=== PATIENT | male | born 1970 | race Caucasian/White ===

== ENCOUNTER 2017-07-24 19:50 | Inpatient (IN) | payer MEDICAID, OTHER ==
[~2017-07-24] VITALS: Ht 177.8 cm; Wt 140.1 kg
[2017-07-24] MEDS ORDERED: SODIUM CHLORIDE 0.9% 1,000 ML IV ONE (19:58)
[2017-07-24] MEDS ORDERED: MORPHINE SULFATE 4 MG/ML, 1ML IVPush PRN (20:00)
[2017-07-24] MEDS ORDERED: SODIUM CHLORIDE 0.9% 1,000ML IVBOLUS ONE (20:00)
[2017-07-24] MEDS ORDERED: FAMOTIDINE 20 MG/2 ML IVP ONE (20:00)
[2017-07-24] MEDS ORDERED: ONDANSETRON 2MG/ML, 2ML IVPush ONE (20:00)
[2017-07-24] MEDS ORDERED: MORPHINE SULFATE 4 MG/ML, 1ML ONE (20:10)
[2017-07-24] MEDS ORDERED: ONDANSETRON 2MG/ML, 2ML ONE (20:10)
[2017-07-24] MEDS ORDERED: FAMOTIDINE 20 MG/2 ML ONE (20:11)
[2017-07-24 20:31] LABS: PATH.CAST-FLAG NOT PRESENT; SPERM-FLAG NOT PRESENT; SRC-FLAG NOT PRESENT; XTAL-FLAG NOT PRESENT; YLC-FLAG NOT PRESENT
[2017-07-24 20:55] LABS: HEMATOCRIT 44.7 % (39.2-51.8); HEMOGLOBIN 14.9 g/dL (13.7-18.0); WHITE BLOOD COUNT 19.6 x10^3/uL (3.4-10)
[2017-07-24 21:06] LABS: BLOOD UREA NITROGEN 11 mg/dL (7-18)
[2017-07-24 21:10] LABS: ASPARTATE AMINO TRANSFERASE 35 U/L (15-37)
[2017-07-24 21:19] LABS: DIFF TOTAL CELLS COUNTED 100 CELL DIFF
[2017-07-24 21:21] LABS: VERIFY COUNTS? YES
[2017-07-24] MEDS ORDERED: CEFTRIAXONE PMX 1GM/50ML 50 ML IVPB ONE (21:30)
[2017-07-24] MEDS ORDERED: CEFTRIAXONE PMX 1GM/50ML 50 ML ONE (21:38)
[2017-07-24] MEDS ORDERED: SODIUM CHLORIDE FLUSH 10ML SYR IVF PRN (22:00)
[2017-07-24] MEDS ORDERED: ONDANSETRON 2MG/ML, 2ML IVPush PRN ×2 (22:00→23:30)
[2017-07-24] MEDS ORDERED: HYDROmorphone 1 MG/ML, 1ML IVPush PRN (22:00)
[2017-07-24] MEDS ORDERED: SUMA100T3 PO (22:05)
[2017-07-24] MEDS ORDERED: HYDROcodone/APAP 5/325 TABLET PO PRN (23:30)
[2017-07-24] MEDS ORDERED: morphine SULFATE 10 MG/ML, 1ML IVPush PRN (23:30)
[2017-07-24] MEDS: HEPARIN 5,000 UNITS/ML, 1ML SQ SCH (23:30)
[2017-07-24] MEDS ORDERED: CEFTRIAXONE PMX 1GM/50ML 50 ML IV SCH (23:30)
[2017-07-25] VITALS: BP 117/73
[2017-07-25] MEDS: SODIUM CHLORIDE 0.9% 1,000 ML IV SCH ×3 (00:11→13:04)
[2017-07-25 04:58] LABS: HEMATOCRIT 42.5 % (39.2-51.8); HEMOGLOBIN 14.2 g/dL (13.7-18.0); WHITE BLOOD COUNT 17.8 x10^3/uL (3.4-10)
[2017-07-25 05:10] LABS: BLOOD UREA NITROGEN 9 mg/dL (7-18)
[2017-07-25 07:18] VITALS: BP 167/92
[2017-07-25] MEDS: HEPARIN 5,000 UNITS/ML, 1ML SQ SCH ×2 (07:30→15:30)
[2017-07-25] MEDS ORDERED: SUMATRIPTAN 50 MG TABLET PO PRN (08:30)
[2017-07-25 14:00] VITALS: BP 121/68
[2017-07-25] MEDS ORDERED: CIPR500T87 PO (16:17)
== END 2017-07-25 17:10 | disposition home or self-care (01) | DRG 690 ==
LOC: ED 23:24 → 4WST 23:59
PROVIDERS: ADMIT Family Medicine; ATTEND Family Medicine
DX: N13.6 Pyonephrosis (principal); N28.1 Cyst of kidney, acquired; N20.2 Calculus of kidney with calculus of ureter; I25.2 Old myocardial infarction; Z87.442 Personal history of urinary calculi; Z83.3 Family history of diabetes mellitus; Z80.8 Family history of malignant neoplasm of other organs or systems; Z82.49 Family history of ischemic heart disease and other diseases of the circulatory system
CPT/HCPCS: 36415; 74176; 80048; 80053; 81001; 83036; 83690; 85025; 87077; 87086; 87186; 93005; 96361; 96374; 96375; J0696; J1170; J2405; J2270; J7030; S0028

== ENCOUNTER → 2017-10-18 | Outpatient (CLI) | payer OTHER ==
[~2017-10-18] MED LIST: CIPR500T87 PO; SUMA100T3 PO
== END | disposition home or self-care (01) ==
LOC: RAD 16:35
PROVIDERS: ATTEND Urology
DX: N20.1 Calculus of ureter (principal)
CPT/HCPCS: 74000

== ENCOUNTER 2021-06-24 07:46 | Inpatient (IN) | payer OTHER ==
[~2021-06-24] VITALS: Ht 177.8 cm; Wt 159.6 kg
--- NOTE | 2021-06-24 07:59 | NUR ---
LAB INSTRUCTOR: PT TO ROOM FROM [facility].
--- NOTE | 2021-06-24 08:32 | NUR ---
CONTACT WITH PT, 51 YR OLD MALE HERE WITH MULTIPLE COMPLAINTS, "I DONT KNOW IF ITS KIDNEY STONES OR WHAT. I HAVE FEVER (BEGAN TODAY), ALL OVER PAIN, WHEN I COUGH IT FEELS A PINCH OF MY CHEST ON THE LEFT SIDE, BODY ACHES(SEVERAL WEEKS)" TOOK 3 EXCEDRIN TABLETS AT 0430. PT PLACED ON MONITORS. TATUM PATRICIA AT BEDSIDE TO JENNY GOODMAN.
[2021-06-24] MEDS ORDERED: IBUPROFEN 600 MG TABLET ONE (08:51)
[2021-06-24] MEDS ORDERED: ONDANSETRON 2MG/ML, 2ML ONE (08:51)
[2021-06-24] MEDS ORDERED: SODIUM CHLORIDE 0.9% 1,000ML IVBOLUS ONE (09:00)
[2021-06-24] MEDS ORDERED: ONDANSETRON 2MG/ML, 2ML IVPush ONE (09:00)
[2021-06-24] MEDS ORDERED: IBUPROFEN 600 MG TABLET PO ONE (09:00)
--- NOTE | 2021-06-24 09:07 | NUR ---
REPORT FROM MATHEW POSADAS. LAB CURRENTLY AT BEDSIDE. IMAGING ENTERING ROOM FOR CXR. US IV ON STANDBY FOR ACCESS.
--- NOTE | 2021-06-24 09:11 | NUR ---
LAB IN TO DRAW LABS, PORTABLE CXR COMPLETED. URINE COLLECTED. REPORT TO TIFFANIE CARMONA
[2021-06-24 09:24] LABS: MEAN CORPUSCULAR HEMOGLOBIN 25.7 pg (27.5-34.5); MEAN CORPUSCULAR HGB CONC 33.1 g/dL (33.2-36.2); PLATELET COUNT 328 x10^3/uL (130-400); RED BLOOD COUNT 5.57 x10^6/uL (4.38-5.82); RED CELL DISTRIBUTION WIDTH 15.8 % (9.4-14.8)
[2021-06-24 09:27] LABS: MICROSCOPIC INDICATED
[2021-06-24 09:42] LABS: ALBUMIN 3.6 g/dL (3.4-5.0)
--- NOTE | 2021-06-24 09:47 | NUR ---
IV STARTED, SECOND SET OF BLOOD CULTURES COLLECTED, LABELLED AND SENT. PT HOB TO POSITION OF COMFORT, PILLOWS PLACED FOR PT COMFORT. LIGHTS DIMMED, CALL LIGHT IN REACH, SIDE RAILS UP, CURTAIN PULLED AND DOOR CLOSED.
[2021-06-24 09:48] LABS: ALANINE AMINOTRANSFERASE 53 U/L (12-78); ALKALINE PHOSPHATASE 92 U/L (45-117); BILIRUBIN,TOTAL 0.8 mg/dL (0.2-1.0); CREATININE 0.88 mg/dL (0.7-1.3); TOTAL PROTEIN 8.3 g/dL (6.4-8.2); TROPONIN I < 0.015 ng/mL (0.000-0.045)
[2021-06-24 09:59] LABS: <PLATELET ESTIMATE> ADEQUATE; <PLT MORPHOLOGY> NORMAL PLT MORPH; ANISOCYTOSIS 1+; LYMPH#(MANUAL) 1.77 x10^3/uL (1-3.4); LYMPHS% (MANUAL) 7 % (22-44); MICROCYTOSIS 1+; MONOS#(MANUAL) 1.52 x10^3/uL (0.3-2.7); MONOS% (MANUAL) 6 % (2-9); SEG#(MANUAL) 22.01 x10^3/uL (1.8-6.8); SEGS% (MANUAL) 87 % (42-75)
[2021-06-24 10:13] LABS: ANION GAP 8 mmol/L (5-15); CHLORIDE 104 mmol/L (98-107)
--- NOTE | 2021-06-24 10:57 | NUR ---
YELLOW SLIP SENT TO PHARMACY REQUEST FOR IMITREX.
[2021-06-24] MEDS ORDERED: SUMATRIPTAN 100 MG TABLET PO PRN (11:00)
--- NOTE | 2021-06-24 11:05 | NUR ---
PT TAKEN TO CT.
--- NOTE | 2021-06-24 11:47 | NUR ---
CALL TO PHARMACY FOR IMITREX.
--- NOTE | 2021-06-24 12:00 | NUR ---
PT CLEARED BY DR WASSERMAN TO EAT. PT AND , WHO REMAINS AT BEDSIDE IS AWARE.
--- NOTE | 2021-06-24 12:56 | NUR ---
RN AND PA IN TO ROOM FOR URETHRA VISUALIZATION. UNABLE TO APPRECIATE TIP OF PENIS DESPITE PRESSURE ON PANNUS. ERYTHEMA EVIDENT AROUND LOW PELVIC REGION. AWAITING FURTHER ORDERS.
[2021-06-24] MEDS ORDERED: CEFTRIAXONE 1,000 MG in DEXTROSE 5% 50 ML IVPB ONE (13:00)
[2021-06-24] MEDS ORDERED: BISACODYL 10 MG SUPP PR PRN (13:30)
[2021-06-24] MEDS ORDERED: morphine SULFATE 10 MG/ML, 1ML IVPush PRN (13:30)
[2021-06-24] MEDS ORDERED: ACETAMINOPHEN 325 MG TABLET PO PRN (13:30)
[2021-06-24] MEDS ORDERED: VANCOMYCIN 2,500 MG in SODIUM CHLORIDE 0.9% 500 ML IV ONE (13:30)
[2021-06-24] MEDS ORDERED: PROMETHAZINE 25 MG/ML, 1ML IM PRN (13:30)
[2021-06-24] MEDS ORDERED: hydrALAzine 20 MG/ML, 1ML IVPush PRN (13:30)
[2021-06-24] MEDS ORDERED: OXYcodone IR 5MG TABLET PO PRN (13:30)
[2021-06-24] MEDS ORDERED: ONDANSETRON 2MG/ML, 2ML IVPush PRN (13:30)
[2021-06-24] MEDS ORDERED: VANCOMYCIN PER PHARMACY MC ONE (13:30)
[2021-06-24] MEDS ORDERED: POLYETHYLENE GLYCOL 17 GM PACKET PO PRN (13:30)
[2021-06-24] MEDS ORDERED: DOCUSATE 100 MG CAPSULE PO PRN (13:30)
[2021-06-24] MEDS ORDERED: ONDANSETRON ODT 4 MG PO PRN (13:30)
--- NOTE | 2021-06-24 13:30 | NUR ---
REPORT TO MATHEW CASANOVA. REMAINS AT BEDSIDE.
--- NOTE | 2021-06-24 13:32 | NUR ---
REPORT RECEIVED FROM MATHEW MORENO, CARE ASSUMED AT THIS TIME.
--- NOTE | 2021-06-24 13:45 | NUR ---
PHARMACY CALLED TO SEND MALU 2G, MED NOT IN ED PHARMACY
[2021-06-24] MEDS ORDERED: VANCOMYCIN PER PHARMACY MC PRN (14:00)
[2021-06-24] MEDS: CEFTRIAXONE 2 GM in DEXTROSE 5% 50 ML IVPB SCH ×2 (14:00→14:02)
--- NOTE | 2021-06-24 14:04 | NUR ---
TASK RN: MEDICATED PER EMAR WITH ABX AFTER CLARIFICATION THAT BLOOD CULTURES ALREADY DRAWN WITH ASSESSMENT PATIENT COMPLAINING OF [place] REFRACTORY TO IMITRX- TO NOTIFY PROVIDER
[2021-06-24] MEDS: ENOXAPARIN 40 MG/0.4 ML SQ SCH (14:30)
--- NOTE | 2021-06-24 14:37 | NUR ---
REPORT GIVEN TO MATHEW MUHAMMAD PT AWAITING TRANSPORT TO MEDICAL FLOOR.
--- NOTE | 2021-06-24 14:39 | NUR ---
PER MATHEW MORENO, STRAIGHT CATH UA WAS DEFERRED PER LEYDA GARCIA D/T PATIENT ANATOMY.
[2021-06-24] MEDS ORDERED: PHARMACOKINETIC CONSULTATION MC ONE (16:30)
[2021-06-24] MEDS ORDERED: PHARMACOKINETIC MONITORING MC PRN (16:30)
[2021-06-24 17:03] VITALS: BP 125/72
[2021-06-24] MEDS: SODIUM CHLORIDE 0.9% 1,000 ML IV SCH (17:13)
[2021-06-24 20:02] VITALS: BP 149/74
[2021-06-24] MEDS: INSULIN LISPRO 100 UNITS/ML, PEN SQ-INSULIN SCH (20:46)
[2021-06-24] MEDS: IBUPROFEN 200 MG TABLET PO PRN (20:46)
[2021-06-24 23:40] LABS: MICROSCOPIC INDICATED
[2021-06-25 01:07] VITALS: BP 114/79
[2021-06-25] MEDS: IBUPROFEN 200 MG TABLET PO PRN ×2 (03:28→21:40)
[2021-06-25] MEDS: VANCOMYCIN 2,000 MG in SODIUM CHLORIDE 0.9% 500 ML IV SCH ×2 (03:29→14:57)
[2021-06-25] MEDS: SODIUM CHLORIDE 0.9% 1,000 ML IV SCH (03:29)
[2021-06-25] MEDS: SUMATRIPTAN 100 MG TABLET PO PRN ×2 (03:34→21:35)
[2021-06-25 05:48] LABS: MEAN CORPUSCULAR HEMOGLOBIN 25.6 pg (27.5-34.5); MEAN CORPUSCULAR HGB CONC 32.4 g/dL (33.2-36.2); PLATELET COUNT 237 x10^3/uL (130-400); RED BLOOD COUNT 5.01 x10^6/uL (4.38-5.82); RED CELL DISTRIBUTION WIDTH 15.8 % (9.4-14.8)
[2021-06-25 05:58] LABS: CHLORIDE 106 mmol/L (98-107)
[2021-06-25 06:17] LABS: ALANINE AMINOTRANSFERASE 39 U/L (12-78); ALBUMIN 2.8 g/dL (3.4-5.0); ALKALINE PHOSPHATASE 77 U/L (45-117); ANION GAP 5 mmol/L (5-15); BILIRUBIN,TOTAL 0.7 mg/dL (0.2-1.0); CALCIUM 8.4 mg/dL (8.5-10.1); CHOL/HDL RATIO 4.1; CHOLESTEROL, TOTAL 147 mg/dL (140-239); CREATININE 0.79 mg/dL (0.7-1.3); HDL CHOL % 24 % (26-37); HDL CHOLESTEROL (DIRECT) 36 mg/dL (40-60); LDL CHOLESTEROL,CALCULATED 95 mg/dL (54-169); LDL/HDL RATIO 2.6 (0.5-3.0); TOTAL PROTEIN 7.6 g/dL (6.4-8.2); TRIGLYCERIDES 80 mg/dL (50-200); VLDL CHOLESTEROL 16 mg/dL (0-25)
[2021-06-25 07:33] LABS: <PLATELET ESTIMATE> ADEQUATE; <PLT MORPHOLOGY> NORMAL PLT MORPH; ANISOCYTOSIS 1+; LYMPH#(MANUAL) 3.36 x10^3/uL (1-3.4); LYMPHS% (MANUAL) 16 % (22-44); MICROCYTOSIS 1+; MONOS#(MANUAL) 1.68 x10^3/uL (0.3-2.7); MONOS% (MANUAL) 8 % (2-9); SEG#(MANUAL) 15.96 x10^3/uL (1.8-6.8); SEGS% (MANUAL) 76 % (42-75)
[2021-06-25 08:02] VITALS: BP 100/66
[2021-06-25] MEDS: INSULIN LISPRO 100 UNITS/ML, PEN SQ-INSULIN SCH ×4 (08:47→21:36)
[2021-06-25] MEDS ORDERED: ALBUTEROL-IPRATROPIUM MDI INH INH PRN (13:30)
[2021-06-25] MEDS ORDERED: ALBUTEROL/IPRATROPIUM 2.5MG/0.5MG, 3 ML NPPB PRN ×2 (13:30)
[2021-06-25 13:56] VITALS: BP 105/64
[2021-06-25] MEDS: ENOXAPARIN 40 MG/0.4 ML SQ SCH ×2 (14:30→15:30)
[2021-06-25 20:55] VITALS: BP 114/72
[2021-06-25 23:46] VITALS: BP 116/67
[2021-06-26 02:42] LABS: BASOPHILS % (AUTO) 1 % (0-1); EOSINOPHILS % (AUTO) 3 % (1-7); LYMPHOCYTES % (AUTO) 17 % (22-44); MEAN CORPUSCULAR HEMOGLOBIN 25.6 pg (27.5-34.5); MEAN CORPUSCULAR HGB CONC 32.6 g/dL (33.2-36.2); MEAN PLATELET VOLUME 7.9 fL (7.4-10.4); MONOCYTES % (AUTO) 8 % (2-9); NEUTROPHILS % (AUTO) 72 % (42-75); PLATELET COUNT 256 x10^3/uL (130-400); RED BLOOD COUNT 5.07 x10^6/uL (4.38-5.82); RED CELL DISTRIBUTION WIDTH 15.5 % (9.4-14.8)
[2021-06-26 02:56] LABS: ANION GAP 6 mmol/L (5-15); CALCIUM 8.9 mg/dL (8.5-10.1); CHLORIDE 105 mmol/L (98-107); CREATININE 0.77 mg/dL (0.7-1.3)
[2021-06-26] MEDS: ENOXAPARIN 40 MG/0.4 ML SQ SCH ×2 (03:30→15:30)
[2021-06-26] MEDS: VANCOMYCIN 2,000 MG in SODIUM CHLORIDE 0.9% 500 ML IV SCH ×2 (06:01→17:18)
[2021-06-26] MEDS: IBUPROFEN 200 MG TABLET PO PRN ×2 (06:08→17:26)
[2021-06-26] MEDS: SUMATRIPTAN 100 MG TABLET PO PRN ×2 (06:08→21:38)
[2021-06-26 06:31] VITALS: BP 135/86
[2021-06-26] MEDS: INSULIN LISPRO 100 UNITS/ML, PEN SQ-INSULIN SCH ×4 (07:00→20:22)
[2021-06-26] MEDS ORDERED: IBUPROFEN 200 MG TABLET PO PRN (11:00)
[2021-06-26] MEDS: CEFTRIAXONE 2 GM in DEXTROSE 5% 50 ML IVPB SCH (12:51)
[2021-06-26 12:56] VITALS: BP 131/75
[2021-06-26 19:41] VITALS: BP 134/78
[2021-06-27 01:54] VITALS: BP 132/80
[2021-06-27] MEDS: ENOXAPARIN 40 MG/0.4 ML SQ SCH ×2 (03:02→15:07)
[2021-06-27 05:33] LABS: BASOPHILS % (AUTO) 1 % (0-1); EOSINOPHILS % (AUTO) 4 % (1-7); LYMPHOCYTES % (AUTO) 21 % (22-44); MEAN CORPUSCULAR HEMOGLOBIN 26.4 pg (27.5-34.5); MEAN CORPUSCULAR HGB CONC 33.8 g/dL (33.2-36.2); MEAN PLATELET VOLUME 8.4 fL (7.4-10.4); MONOCYTES % (AUTO) 11 % (2-9); NEUTROPHILS % (AUTO) 64 % (42-75); PLATELET COUNT 272 x10^3/uL (130-400); RED BLOOD COUNT 5.12 x10^6/uL (4.38-5.82); RED CELL DISTRIBUTION WIDTH 15.7 % (9.4-14.8)
[2021-06-27 05:39] LABS: ANION GAP 9 mmol/L (5-15); CALCIUM 8.6 mg/dL (8.5-10.1); CHLORIDE 105 mmol/L (98-107); CREATININE 0.76 mg/dL (0.7-1.3)
[2021-06-27] MEDS: VANCOMYCIN 2,000 MG in SODIUM CHLORIDE 0.9% 500 ML IV SCH ×2 (05:41→17:55)
[2021-06-27] MEDS: INSULIN LISPRO 100 UNITS/ML, PEN SQ-INSULIN SCH ×4 (07:59→20:45)
[2021-06-27] MEDS: IBUPROFEN 200 MG TABLET PO PRN ×2 (07:59→17:55)
[2021-06-27 09:00] VITALS: BP 124/76
[2021-06-27] MEDS: SUMATRIPTAN 100 MG TABLET PO PRN (09:14)
[2021-06-27] MEDS: CEFTRIAXONE 2 GM in DEXTROSE 5% 50 ML IVPB SCH (11:53)
[2021-06-27 12:18] VITALS: BP 132/79
[2021-06-27 20:02] VITALS: BP 153/94
[2021-06-28 01:20] VITALS: BP 120/77
[2021-06-28] MEDS: ENOXAPARIN 40 MG/0.4 ML SQ SCH ×2 (02:59→15:30)
[2021-06-28] MEDS: VANCOMYCIN 2,000 MG in SODIUM CHLORIDE 0.9% 500 ML IV SCH (05:55)
[2021-06-28 07:36] VITALS: BP 118/79
[2021-06-28] MEDS: INSULIN LISPRO 100 UNITS/ML, PEN SQ-INSULIN SCH ×3 (07:41→16:00)
[2021-06-28] MEDS: CEFTRIAXONE 2 GM in DEXTROSE 5% 50 ML IVPB SCH (11:28)
[2021-06-28] MEDS ORDERED: METF500T17 PO (12:35)
[2021-06-28] MEDS ORDERED: CEFD300C37 PO (12:35)
[2021-06-28 13:01] VITALS: BP 131/80
== END 2021-06-28 17:34 | disposition home or self-care (01) | DRG 872 ==
LOC: ED 08:09 → EDIP 13:13 → 3N 16:18
PROVIDERS: ADMIT Internal Medicine; ATTEND Internal Medicine
PROC: 0T9B70Z Drainage of Bladder with Drainage Device, Via Natural or Artificial Opening (ICD-10-PCS; principal; 2021-06-24)
DX: A41.9 Sepsis, unspecified organism (principal); N39.0 Urinary tract infection, site not specified; Z68.43 Body mass index [BMI] 50.0-59.9, adult; B34.9 Viral infection, unspecified; Z91.048 Other nonmedicinal substance allergy status; B95.2 Enterococcus as the cause of diseases classified elsewhere; B96.1 Klebsiella pneumoniae [K. pneumoniae] as the cause of diseases classified elsewhere; E11.65 Type 2 diabetes mellitus with hyperglycemia; E66.01 Morbid (severe) obesity due to excess calories; G43.909 Migraine, unspecified, not intractable, without status migrainosus; L30.9 Dermatitis, unspecified; N48.1 Balanitis; Z20.822 Contact with and (suspected) exposure to COVID-19; Z87.442 Personal history of urinary calculi; B37.9 Candidiasis, unspecified
CPT/HCPCS: 36415; 84145; 96374; 99291; C8929; 71045; 71250; 74176; 80048; 80053; 80061; 80202; 81001; 82962; 83036; 83605; 83735; 84100; 84443; 84484; 85025; 87040; 87077; 87086; 87186; 93005; G0378; J0696; J2405; J3370; Q9957; U0005; J1815; J7030; J7040; U0003